=== PATIENT | female | born 1960 | race Caucasian/White ===

== ENCOUNTER 2018-12-21 13:24 | Emergency (ER) | payer BC | END 2018-12-21 15:18 | disposition home or self-care (01) | LOC: FER 13:24 ==

== ENCOUNTER 2020-02-13 16:44 | Emergency (ER) | payer BC ==
--- NOTE | 2020-02-13 16:47 | PDOC ---
History of Present Illness - General Chief Complaint: Lightheaded Stated Complaint: DIZZINESS - History of Present Illness Initial Comments: The pt is a 59F w/ a history of HTN, DM who presents for evaluation of dizziness for 2 days. She reports intermittent dizziness that is worse with standing and also when her blood glucose is elevated. Pt reports similar symptoms 2 weeks ago and at that time also fell and hit her head. Since that time she denies any other falls or LOC. Currently she states that she is mildly lightheaded. She endorses nausea. She denies YANES, vision changes, chest pain at any time, SOB, vomiting, diarrhea, dysuria, hematuria, or changes in strength. She has not taken anything for her symptoms. She reports that she should be taking long and short acting insulin in addition to her Metformin but does not like needles so is less compliant with it. She endorses intermittent tingling in her hands/feet 02/13/20 16:51 Past History - Medical History Allergies/Adverse Reactions: Allergies Allergy/AdvReac Type Severity Reaction Status Date / Time No Known Allergies Allergy Verified 02/13/20 16:46 Home Medications: Ambulatory Orders Metformin HCl [Glucophage] 1,000 mg PO BID 12/21/18 Atorvastatin Ca [Lipitor] 10 mg PO HS 02/13/20 Insulin Glargine,Hum.rec.anlog [Lantus Solostar PEN (NF)] 10 units SQ AM 02/13/20 Insulin Sliding Scale [Novolog Vial Sliding Scale -] 0 units SQ TIDAC 02/13/20 COPD: No Diabetes: Yes HTN: Yes - Psycho-Social/Smoking History Smoking History: Never smoked Have you smoked in the past 12 months: No Review of Systems - Review of Systems Able to Perform ROS?: Yes Comments:: GENERAL/CONSTITUTIONAL: No fever or chills HEAD, EYES, EARS, NOSE AND THROAT: No change in vision. No change in hearing. No sore throat CARDIOVASCULAR: No chest pain or shortness of breath RESPIRATORY: Denies cough, hemoptysis GASTROINTESTINAL: +nausea; No vomiting, diarrhea or constipation GENITOURINARY: No dysuria, frequency, or change in urination MUSCULOSKELETAL: No joint or muscle swelling or pain. No neck or back pain SKIN: No rash NEUROLOGIC: No headache, vertigo, loss of consciousness; +intermittent tingling in hands/feet ENDOCRINE: +polydipsia/polyuria HEMATOLOGIC/LYMPHATIC: No anemia, easy bleeding, or history of blood clots ALLERGIC/IMMUNOLOGIC: No hives or skin allergy 02/13/20 16:46 Is the patient limited Georgian proficient: No *Physical Exam - Vital Signs Initial Vital Signs Temp Pulse Resp BP Pulse Ox 98.5 F 85 18 154/87 99 02/13/20 16:44 02/13/20 16:44 02/13/20 16:44 02/13/20 16:44 02/13/20 16:44 02/13/20 17:17 - Physical Exam GENERAL: Awake, alert, and oriented to person/place/time, in no acute distress HEAD: Well healing laceration to R frontal scalp that is well healing EYES: PERRLA, EOMI, sclera anicteric, conjunctiva clear ENT: Hearing grossly normal, nares patent, oropharynx clear without exudates. Moist mucosa LUNGS: No distress, speaks in full sentences, clear to auscultation bilaterally HEART: Regular rate and rhythm, normal S1 and S2, no murmurs appreciated, peripheral pulses normal and equal bilaterally ABDOMEN: Soft, nontender, normoactive bowel sounds. No guarding, no rebound EXTREMITIES: Normal inspection, Normal range of motion, no edema. No clubbing or cyanosis NEUROLOGICAL: Cranial nerves II through XII grossly intact. Normal speech, ambulating with stable gait, no focal sensorimotor deficits SKIN: Warm, Dry 02/13/20 16:47 ED Treatment Course - LABORATORY CBC & Chemistry Diagram: 02/13/20 17:00 02/13/20 17:00 Medical Decision Making - Medical Decision Making The pt is a 59F w/ a history of HTN, DM who presents for evaluation of dizziness for 2 days. Pt is non-compliant with insulin and reports she will feel this way when her g lucose is high. However pt took insulin today, approx 2 hours [employer] Ddx: ACS, hyperglycemia, hypoglycemia, not likely ICH (given time since fall), consider DKA ED Course BGM 186, not likely DKA, pt; Pt took Novolog 8u 2 hours [employer] CMP, CBC, Coags, UA, UCx ECG CXR 1L NS, Tylenol, Maalox, Pepcid Will hold Zofran at this time given prolonged QTc 02/13/20 17:20 ECG w/ sinus rhythm; incomplete RBBB; HR 83; QTc 491, prolonged; similar to previous; abn ECG 02/13/20 17:24 No anemia No leukocytosis UA contaminated, not likely UA Pending chemistries and Trop Pt signed out to night team 02/13/20 19:00 Discharge - Discharge Information Problems reviewed: Yes Clinical Impression/Diagnosis: Dizziness Condition: Stable - Follow up/Referral Referrals: Azalea Albert [Primary Care Provider] - - Patient Discharge Instructions - Post Discharge Activity
[2020-02-13 16:50] VITALS: TEMP 98.5; BMI 39.6
[2020-02-13] MEDS ORDERED: FAMOTIDINE 20 MG/50 ML IVPB 20 MG/50 ML MG IVPB ONE ×2 (17:08→17:11)
[2020-02-13] MEDS ORDERED: MAG HYDROX/AL HYDROX/SIMETH -MYLANTA- ORAL SUSPENSION PO ONE (17:08)
[2020-02-13] MEDS ORDERED: SODIUM CHLORIDE 0.9% 500 ML INFUS.BAG IV ONE (17:08)
[2020-02-13] MEDS ORDERED: ACETAMINOPHEN 1000 MG/100 ML VIAL (NON FORMULARY) IVPB ONE (17:08)
[2020-02-13] MEDS ORDERED: ONDANSETRON 4 MG/2 ML VIAL IVPUSH ONE (17:08)
[2020-02-13] MEDS ORDERED: ACETAMINOPHEN INJECTION 100 ML IVPB ONE (17:10)
[2020-02-13] MEDS ORDERED: MAG HYDROX/AL HYDROX/SIMETH 30 ML UNIT-DOSE CUP ONE (17:11)
[2020-02-13] MEDS ORDERED: MECLIZINE HCL 25 MG TABLET (FP) PO ONE (17:19)
[2020-02-13] MEDS ORDERED: MECLIZINE HCL 25 MG TABLET (FP) ONE (17:28)
--- NOTE | 2020-02-13 18:17 | PDOC ---
Attending Attestation - Resident Resident Name: Emmanuel Graham - ED Attending Attestation I have performed the following: I have examined & evaluated the patient, The case was reviewed & discussed with the resident, I agree w/resident's findings & plan, Exceptions are as noted - HPI HPI: 02/13/20 18:16 59 years old past medical history significant for hypertension diabetes presents emergency department for evaluation of dizziness for 2 days. Patient has had very similar symptoms in the past usually when her glucose is poorly controlled. She reports intermittent lightheadedness only with change in position it only occurs while ambulating it goes away when she lays down. Denies chest pain shortness of breath diaphoresis. This happens every few weeks to every few months. Normally resolves on its own - Physicial Exam PE: 02/13/20 18:16 Vitals: Triage Vital signs reviewed General Appearance: No acute distress, well nourished well developed, Head: Atraumatic, Eyes: Pupils equal reactive round, extraocular movement intact Neck: Supple; no Nucal rigidity Chest Wall: Nontender Cardiac: Regular rate and rhythym, no murmurs, no rubs, no gallops, Lungs: Clear to auscultation bilateral, good air movement bilaterally, Abdomen: Soft, non distended, normal bowel sounds, non tender to palpation Extremities: Full range of motion to all extremities, no cyanosis, clubbing, or edema Skin: Warm and dry, no rashes or lesions, no rash, no petechiae Neuro: AOX3; cranial Nerves 2-12 grossly intact, strength intact to all extremities, sensation intact to all extremities, gait normal Psych: Normal mood, normal affect - Medical Decision Making 02/13/20 18:16 Well-appearing no apparent distress with positional lightheadedness similar to previous episodes Differential diagnosis includes poorly controlled diabetes, dehydration, less likely ACS very low suspicion for neurologic etiology given nonfocal normal neurologic examination Will perform EKG labs hydrate meclizine observe and reassess EKG performed at 1656 demonstrates normal sinus rhythm no ST elevations no T wave inversions incomplete right bundle branch block Interpreted by me Dr. Aliya García to follow up labs reasses and dispo. CXR no acute pathology interpreted by me Discharge - Discharge Information Problems reviewed: Yes Clinical Impression/Diagnosis: Dizziness Condition: Stable - Follow up/Referral Referrals: Albert,Azalea [Primary Care Provider] - - Patient Discharge Instructions - Post Discharge Activity
[2020-02-13 18:31] LABS: BASO % 0.4 % (0-2.0); EOS % 2.1 % (0-4.5); HEMATOCRIT 38.9 % (32.4-45.2); LYMPH % 19.8 % (8-40); MCHC 33.3 g/dl (32.0-36.0); MEAN CELL VOLUME 86.8 fl (80-96); MEAN PLT VOLUME 11.1 fl (7.5-11.1); NEUT % 73.7 % (42.8-82.8); PLATELET COUNT 208 K/MM3 (134-434); RBC 4.48 M/mm3 (3.60-5.2); RDW 13.2 % (11.6-15.6); WHITE BLOOD COUNT 8.8 K/mm3 (4.0-10.0)
[2020-02-13 18:37] LABS: EPI CELLS >36 /uL (0-25.1); HYALINE CASTS 3 /uL (0-3.1); URINE APPEARANCE CLEAR; URINE BACTERIA 105 /uL (0-1359); URINE BILIRUBIN NEGATIVE (NEGATIVE); URINE COLOR YELLOW; URINE GLUCOSE (UA) NEGATIVE (NEGATIVE); URINE KETONE TRACE (NEGATIVE); URINE LEUK ESTERASE 1+ (NEGATIVE); URINE NITRITE NEGATIVE (NEGATIVE); URINE PROTEIN NEGATIVE (NEGATIVE); URINE RBC 7 /uL (0-23.9); URINE WBC 83 /uL (0-25.8)
[2020-02-13 18:52] LABS: INR 0.95 (0.83-1.09); PROTHROMBIN TIME (PATIENT) 11.2 SEC (9.7-13.0)
[2020-02-13 18:55] LABS: ACTIVATED PTT 28.7 SECONDS (25.2-36.5)
[2020-02-13 19:48] LABS: ALBUMIN 3.6 g/dl (3.4-5.0); ALK PHOS 72 U/L (45-117); ANION GAP 10 MMOL/L (8-16); BILIRUBIN,TOTAL 0.3 mg/dL (0.2-1); CALCIUM 9.3 mg/dL (8.5-10.1); CHLORIDE 106 mmol/L (98-107); CO2 23 mmol/L (21-32); CREATININE 0.8 mg/dL (0.55-1.3); GLUCOSE,RANDOM 176 mg/dL (74-106); LIPASE 94 U/L (73-393); POTASSIUM 3.9 mmol/L (3.5-5.1); SGOT/AST 10 U/L (15-37); SGPT/ALT 26 U/L (13-61); SODIUM 140 mmol/L (136-145); TOT PROT 7.2 g/dl (6.4-8.2)
--- NOTE | 2020-02-13 20:11 | PDOC ---
*Physical Exam - Vital Signs Last Vital Signs Temp Pulse Resp BP Pulse Ox 98.5 F 85 18 154/87 99 02/13/20 16:44 02/13/20 16:44 02/13/20 16:44 02/13/20 16:44 02/13/20 16:44 ED Treatment Course - LABORATORY CBC & Chemistry Diagram: 02/13/20 17:00 02/13/20 17:00 - ADDITIONAL ORDERS Additional order review: Laboratory Results 02/13/20 02/13/20 02/13/20 17:03 17:00 17:00 PT with INR 11.20 INR 0.95 PTT (Actin FS) 28.7 Sodium 140 Potassium 3.9 Chloride 106 Carbon Dioxide 23 Anion Gap 10 BUN 16.0 Creatinine 0.8 Est GFR (CKD-EPI)AfAm 94.85 Est GFR (CKD-EPI)NonAf 81.84 POC Glucometer 187 Random Glucose 176 H Calcium 9.3 Total Bilirubin 0.3 AST 10 L ALT 26 Alkaline Phosphatase 72 Troponin I < 0.02 Total Protein 7.2 Albumin 3.6 Lipase 94 Urine Color Urine Appearance Urine pH Ur Specific [place] Urine Protein Urine Glucose (UA) Urine Ketones Urine Blood Urine Nitrite Urine Bilirubin Urine Urobilinogen Ur Leukocyte Esterase Urine WBC (Auto) Urine RBC (Auto) Urine Casts (Auto) U Epithel Cells (Auto) U Sm Round Cell (Auto) Urine Bacteria (Auto) 02/13/20 17:00 PT with INR INR PTT (Actin FS) Sodium Potassium Chloride Carbon Dioxide Anion Gap BUN Creatinine Est GFR (CKD-EPI)AfAm Est GFR (CKD-EPI)NonAf POC Glucometer Random Glucose Calcium Total Bilirubin AST ALT Alkaline Phosphatase Troponin I Total Protein Albumin Lipase Urine Color Yellow Urine Appearance Clear Urine pH 5.0 Ur Specific [place] 1.033 Urine Protein Negative Urine Glucose (UA) Negative Urine Ketones Trace H Urine Blood Negative Urine Nitrite Negative Urine Bilirubin Negative Urine Urobilinogen 1.0 Ur Leukocyte Esterase 1+ H Urine WBC (Auto) 83 Urine RBC (Auto) 7 Urine Casts (Auto) 3 U Epithel Cells (Auto) >36 U Sm Round Cell (Auto) None Urine Bacteria (Auto) 105 02/13/20 02/13/20 17:03 17:00 RBC 4.48 MCV 86.8 MCHC 33.3 RDW 13.2 MPV 11.1 Neutrophils % 73.7 Lymphocytes % 19.8 Monocytes % 4.0 Eosinophils % 2.1 Basophils % 0.4 POC Glucometer 187 - Medications Given in the ED: ED Medications Discontinued Medications Generic Name Dose Route Start Last Admin Trade Name Remington PRN Reason Stop Dose Admin Acetaminophen 1,000 mg 02/13/20 17:08 02/13/20 17:25 Ofirmev Injection - IVPB 02/13/20 17:09 1,000 mg ONCE ONE Administration Al Hydroxide/Mg Hydroxide 30 ml 02/13/20 17:08 02/13/20 17:25 Mylanta Suspension - PO 02/13/20 17:09 30 ml ONCE ONE Administration Famotidine/Sodium Chloride 20 mg in 50 mls @ 100 mls/hr 02/13/20 17:08 02/13/20 17:39 Pepcid 20 Mg Premixed Ivpb - IVPB 02/13/20 17:37 100 mls/hr ONCE ONE Administration Meclizine HCl 25 mg 02/13/20 17:19 02/13/20 17:32 Antivert - PO 02/13/20 17:20 25 mg ONCE ONE Administration Ondansetron HCl 4 mg 02/13/20 17:08 02/13/20 17:26 Zofran Injection IVPUSH 02/13/20 17:09 Not Given ONCE ONE Sodium Chloride 1,000 ml 02/13/20 17:08 02/13/20 17:05 Normal Saline - IV 02/13/20 17:09 1,000 ml ONCE ONE Administration ED Progress Note - Progress Note Progress Note: 02/13/20 19:02 This patient was transferred to nd from Dr. Mathias at 1900 hrs. This is a 59-year-old female who comes in complaining of some dizziness. Patient also is complaining of some intermittent abdominal cramping. Patient has a work-up initiated. Patient has history of similar symptoms in the past when she said her sugar was high. Her fingerstick [id number] sugar was 187. Plan is to follow-up work-up, patient is receiving some IV fluids and hydration. If patient feels better work-up is unremarkable patient will be discharged home [id number] Patient feels better abdominal discomfort has nearly resolved patient has a normal white count and her rest of her labs are otherwise unremarkable with the exception of a mildly elevated glucose of 176 and a urinary tract infection. Patient is being treated for the urine will be treated for the urinary tract infection with Macrobid and discharged Discharge - Discharge Information Problems reviewed: Yes Clinical Impression/Diagnosis: Dizziness, Urinary tract infection Condition: Stable Disposition: HOME - Admission No - Additional Discharge Information Prescriptions: Nitrofurantoin Monohyd/M-Cryst [Macrobid -] 100 mg PO BID #14 capsule - Follow up/Referral Referrals: Azalea Albert [Primary Care Provider] - - Patient Discharge Instructions Additional Instructions: For your urinary tract infection take Macrobid 1 tablet twice a day for 7 days. For the abdominal cramping you can take hyoscyamine 1 tablet a day. It is important that you monitor your sugars and stay well-hydrated in this hot weather. Return to the emergency department immediately with ANY new, persistent or worsening symptoms. Continue any medications as previously prescribed by your physician. You should follow up with your primary doctor as soon as possible regarding today's emergency department visit. . Please make sure your doctor reviews the results of your emergency evaluation. Thank you for coming to the Emergency Department today for your care. It was a pleasure to see you today. Please note that your evaluation is INCOMPLETE until you follow-up with your doctor. - Post Discharge Activity
[2020-02-13] MEDS ORDERED: HYOSCYAMINE SULFATE 0.125 MG *ODT ONE (20:12)
[2020-02-13] MEDS ORDERED: NITROFURANTOIN MACROCRYSTAL 50 MG CAPSULE (FP) PO SCH (20:15)
[2020-02-13] MEDS ORDERED: NITROFURANTOIN MACROCRYSTAL 50 MG CAPSULE (FP) ONE (20:19)
[2020-02-13] MEDS ORDERED: HYOSCYAMINE SULFATE 0.125 MG *ODT PO ONE (20:20)
[2020-02-13 20:33] VITALS: BP 133/85; PULSE 76
--- NOTE | 2020-02-14 09:11 | EKG ---
Test Reason : Blood Pressure : / mmHG Vent. Rate : 083 BPM Atrial Rate : 083 BPM P-R Int : 134 ms QRS Dur : 100 ms QT Int : 418 ms P-R-T Axes : 055 -11 -10 degrees QTc Int : 491 ms NORMAL SINUS RHYTHM POSSIBLE LEFT ATRIAL ENLARGEMENT INCOMPLETE RIGHT BUNDLE BRANCH BLOCK LEFT VENTRICULAR HYPERTROPHY PROLONGED QT ABNORMAL ECG WHEN COMPARED WITH ECG OF 21-DEC-2018 14:32, T WAVE INVERSION NOW EVIDENT IN ANTERIOR LEADS Confirmed by Ethan Stephens ([id number]) on 02/14/2020 9:11:22 AM Referred By: DR GARCIA Confirmed By:Ethan Stephens
== END 2020-02-13 20:33 | disposition home or self-care (01) ==
LOC: FER 16:44
PROC: 3E033KZ Introduction of Other Diagnostic Substance into Peripheral Vein, Percutaneous Approach (ICD-10-PCS; principal; 2020-02-13)
PROC: 3E033GC Introduction of Other Therapeutic Substance into Peripheral Vein, Percutaneous Approach (ICD-10-PCS; 2020-02-13)
DX: R42 Dizziness and giddiness (principal); N39.0 Urinary tract infection, site not specified
CPT/HCPCS: 36415; 71045-TC-FY; 80053; 81003; 82962; 83036; 83690; 84484; 85025; 85610; 85730; 87077; 87086; 93005; 99285-25; J0131

== ENCOUNTER 2020-07-28 09:48 | Emergency (ER) | payer BC, OTHER | END 2020-07-28 10:02 | disposition home or self-care (01) | LOC: JVIRT 09:48 | DX: U07.1 COVID-19 (principal) | CPT/HCPCS: C9803; G2012-GT; U0003 ==

== ENCOUNTER 2020-07-28 14:00 | Emergency (ER) | payer BC, OTHER ==
[2020-07-28 14:30] VITALS: TEMP 98.8; BMI 40.0
[2020-07-28] MEDS ORDERED: LACTATED RINGERS SOLUTION 1000 ML INFUS.BAG IV ONE ×2 (14:33→15:20)
[2020-07-28 15:14] LABS: BASO % 0.4 % (0-2.0); EOS % 0.1 % (0-4.5); HEMATOCRIT 38.4 % (32.4-45.2); LYMPH % 15.4 % (8-40); MCH 28.9 pg (25.7-33.7); MCHC 33.8 g/dl (32.0-36.0); MEAN CELL VOLUME 85.3 fl (80-96); MEAN PLT VOLUME 10.3 fl (7.5-11.1); MONO % 5.5 % (3.8-10.2); NEUT % 78.6 % (42.8-82.8); PLATELET COUNT 138 K/MM3 (134-434); RDW 12.2 % (11.6-15.6); WHITE BLOOD COUNT 4.6 K/mm3 (4.0-10.8)
[2020-07-28 15:39] LABS: ALBUMIN 3.1 g/dl (3.4-5.0); BILIRUBIN,TOTAL 0.9 mg/dl (0.2-1); CALCIUM 8.5 mg/dl (8.5-10); CREATININE 0.8 mg/dl (0.55-1.3); POTASSIUM 4.1 mmol/L (3.5-5.1); TOT PROT 6.9 g/dl (6.4-8.2)
[2020-07-28 15:59] LABS: EPITHELIAL CELLS FEW /hpf
[2020-07-28 16:40] VITALS: BP 119/72; PULSE 79
== END 2020-07-28 16:55 | disposition home or self-care (01) ==
LOC: FER 14:00 → SUPCPDRO 14:00 → FER 16:55
DX: R91.8 Other nonspecific abnormal finding of lung field (principal); R42 Dizziness and giddiness; R05 Cough
CPT/HCPCS: 36415; 71045-TC-FY; 80053; 81003; 81015; 82962; 84484; 85025; 93005; 99285-25

== ENCOUNTER 2020-07-29 15:44 | Emergency (ER) | payer BC, OTHER ==
[2020-07-29 16:14] VITALS: TEMP 98.2; BMI 43.3
[2020-07-29] MEDS ORDERED: BAMLANIVIMAB 700 MG in SODIUM CHLORIDE 180 ML IVPB ONE (16:24)
[2020-07-29 17:15] LABS: HEMOGLOBIN 12.4 GM/dL (10.7-15.3); MCH 28.7 pg (25.7-33.7); MCHC 33.6 g/dl (32.0-36.0); MEAN CELL VOLUME 85.5 fl (80-96); MEAN PLT VOLUME 10.8 fl (7.5-11.1); PLATELET COUNT 156 K/MM3 (134-434); RBC 4.33 M/mm3 (3.60-5.2); RDW 12.8 % (11.6-15.6); WHITE BLOOD COUNT 4.9 K/mm3 (4.0-10.0)
[2020-07-29 17:36] LABS: CALCIUM 8.4 mg/dL (8.5-10.1)
[2020-07-29 17:40] LABS: CREATININE 0.6 mg/dL (0.55-1.3)
[2020-07-29 17:49] LABS: BLOOD UREA NITROGEN 14.4 mg/dL (7-18)
[2020-07-29] MEDS ORDERED: guaiFENesin/D-M SUGAR-FREE/ACLHOL-FREE 118 ML BOTTLE PO ONE (18:10)
[2020-07-29 19:35] VITALS: BP 124/78; PULSE 85
== END 2020-07-29 19:34 | disposition home or self-care (01) ==
LOC: JER 15:44
DX: U07.1 COVID-19 (principal)
CPT/HCPCS: 36415; 80048; 85027; 99284-25; M0239; Q0239

== ENCOUNTER 2020-08-07 15:40 | Emergency (ER) | payer BC, OTHER | END 2020-08-07 16:02 | disposition left against medical advice (07) | LOC: JVIRT 15:40 | DX: Z11.52 Encounter for screening for COVID-19 (principal) | CPT/HCPCS: G2251-GT; Q3014-GT ==

== ENCOUNTER 2021-05-03 22:59 | Emergency (ER) | payer BC, OTHER ==
[2021-05-03 23:56] VITALS: BMI 42.5
[2021-05-04 00:55] LABS: CHLORIDE 108 mmol/L (98-107); SODIUM 139 mmol/L (136-145)
[2021-05-04 00:56] LABS: BASO % 0.7 % (0-2.0); CALCIUM 9.1 mg/dL (8.5-10.1); EOS % 1.8 % (0-4.5); HEMATOCRIT 35.3 % (32.4-45.2); HEMOGLOBIN 12.1 GM/dL (10.7-15.3); LYMPH % 14.9 % (8-40); MCH 28.8 pg (25.7-33.7); MCHC 34.4 g/dl (32.0-36.0); MEAN CELL VOLUME 83.7 fl (80-96); MEAN PLT VOLUME 9.9 fl (7.5-11.1); MONO % 6.2 % (3.8-10.2); NEUT % 76.4 % (42.8-82.8); PLATELET COUNT 218 10^3/uL (134-434); RBC 4.22 M/mm3 (3.60-5.2); RDW 13.5 % (11.6-15.6); WHITE BLOOD COUNT 9.3 K/mm3 (4.0-10.0)
[2021-05-04 00:57] LABS: ALBUMIN 3.3 g/dl (3.4-5.0); ANION GAP 3 MMOL/L (8-16); CO2 28 mmol/L (21-32); GLUCOSE,RANDOM 85 mg/dL (74-106); MAGNESIUM 1.8 mg/dL (1.8-2.4)
[2021-05-04 01:00] LABS: CREATININE 0.5 mg/dL (0.55-1.3); SGOT/AST 49 U/L (15-37); SGPT/ALT 36 U/L (13-61)
[2021-05-04 01:02] LABS: BILIRUBIN,TOTAL 0.4 mg/dL (0.2-1); TOT PROT 7.5 g/dl (6.4-8.2)
[2021-05-04 01:03] LABS: ALK PHOS 68 U/L (45-117)
[2021-05-04 01:45] LABS: INR 0.93 (0.83-1.09); PROTHROMBIN TIME (PATIENT) 10.4 SEC (9.7-13.0)
[2021-05-04 03:09] VITALS: BP 137/76; PULSE 72; TEMP 98.3
== END 2021-05-04 05:08 | disposition home or self-care (01) ==
LOC: JER 22:59
DX: R42 Dizziness and giddiness (principal); M79.604 Pain in right leg
CPT/HCPCS: 36415; 80053; 82550; 82553; 83735; 84484; 85025; 85379; 85610; 93005; 93010; 93970-TC; 99284-25

== ENCOUNTER 2024-02-05 19:32 | Inpatient (IN) | payer BC, OTHER ==
[2024-02-05] MEDS ORDERED: CEFEPIME HCL 2 GM VIAL (RESTRICTED TO ID) ONE (19:59)
[2024-02-05] MEDS ORDERED: ACETAMINOPHEN INJECTION 100 ML IVPB ONE (20:00)
[2024-02-05] MEDS ORDERED: VANCOMYCIN 1,000 MG VIAL (RESTRICTED TO ID ONLY) ONE (20:00)
[2024-02-05] MEDS: ACETAMINOPHEN 1000 MG/100 ML BAG IVPB ONE (20:20)
[2024-02-05] MEDS: SODIUM CHLORIDE 0.9% 500 ML INFUS.BAG IV ONE (20:20)
[2024-02-05 20:23] LABS: HEMATOCRIT 36.8 % (32.4-45.2); HEMOGLOBIN 12.4 G/dL (10.7-15.3); MCH 29.1 pg (25.7-33.7); MCHC 33.7 g/dl (32.0-36.0); MEAN CELL VOLUME 86.5 fl (80-96); MEAN PLT VOLUME 10.8 fl (7.5-11.1); PLATELET COUNT 164.2 10^3/uL (134-434); RBC 4.26 10^6/uL (3.60-5.2); RDW 13.7 % (11.6-15.6); WHITE BLOOD COUNT 11.2 10^3/uL (4.0-10.8)
[2024-02-05 20:44] LABS: ALBUMIN 3.8 g/dl (3.4-5.0); ALK PHOS 62 U/L (45-117); ANION GAP 11 mmol/L (4-13); BILIRUBIN,TOTAL 0.6 mg/dl (0.2-1); CALCIUM 9.3 mg/dl (8.5-10.1); CHLORIDE 100 mmol/L (98-107); CO2 23 mmol/L (21-32); CREATININE 0.8 mg/dl (0.6-1.3); GLUCOSE,RANDOM 345 mg/dl (74-106); POTASSIUM 3.7 mmol/L (3.5-5.1); SGOT/AST 11 U/L (15-37); SGPT/ALT 15 U/L (7-52); SODIUM 134 mmol/L (136-145); TOT PROT 6.4 g/dl (6.4-8.2)
[2024-02-05] MEDS: CEFEPIME HCL 1 GM VIAL (RESTRICTED TO ID) IVPB ONE (20:52)
[2024-02-05 21:03] LABS: PLATELET ESTIMATE ADEQUATE
[2024-02-05 21:09] LABS: VENOUS BASE EXCESS -1.7 mmol/L (-2-2); VENOUS O2 SATURATION 85.6 % (70-80); VENOUS PCO2 26.2 mmHg (38-52); VENOUS PH 7.487 (7.310-7.410)
[2024-02-05] MEDS ORDERED: INSULIN (NOVOLOG) ASPART 100 UNITS/ML 10ML VIAL ONE (21:26)
[2024-02-05] MEDS: INSULIN (NOVOLOG) ASPART 100 UNITS/ML 10ML VIAL SQ ONE (21:30)
[2024-02-05] MEDS: VANCOMYCIN 1,000 MG in DEXTROSE 5%-WATER - 250 ML IVPB ONE (22:00)
[2024-02-05 22:15] VITALS: BMI 39.4
[2024-02-05 22:21] LABS: ERYTHROCYTE SEDIMENTATION RATE 70 mm/hr (0-30)
[2024-02-05] MEDS: INSULIN ASPART SLIDING SCALE (NOVOLOG) 1 VIAL SQ SCH (22:45)
[2024-02-06] MEDS ORDERED: DOCUSATE SODIUM 100 MG CAPSULE (FP) PO PRN (04:30)
[2024-02-06] MEDS: oxyCODONE HCL 5 MG TABLET PO PRN (04:51)
[2024-02-06 08:39] LABS: HEMATOCRIT 36.4 % (32.4-45.2); HEMOGLOBIN 11.8 G/dL (10.7-15.3); MCH 27.9 pg (25.7-33.7); MCHC 32.3 g/dl (32.0-36.0); MEAN CELL VOLUME 86.4 fl (80-96); PLATELET COUNT 149.7 10^3/uL (134-434); RBC 4.21 10^6/uL (3.60-5.2); RDW 13.9 % (11.6-15.6); WHITE BLOOD COUNT 8.9 10^3/uL (4.0-10.8)
[2024-02-06] MEDS: VANCOMYCIN/WATER 1250 MG 1,250 MG/250 ML BAG IVPB SCH ×2 (08:52→19:18)
[2024-02-06 09:04] LABS: PLATELET ESTIMATE ADEQUATE
[2024-02-06 10:09] LABS: CALCIUM 8.7 mg/dl (8.5-10.1); CREATININE 0.5 mg/dl (0.6-1.3); POTASSIUM 3.5 mmol/L (3.5-5.1)
[2024-02-06] MEDS ORDERED: ACETAMINOPHEN 325 MG TABLET (FP) ONE (14:37)
[2024-02-06] MEDS: PIPERACILLIN/TAZOB 3.375 GM 3.375 GM in DEXTROSE 5%-WATER - 50 ML IVPB SCH (14:39)
[2024-02-06] MEDS: ACETAMINOPHEN 325 MG TABLET (FP) PO PRN (22:01)
[2024-02-06] MEDS ORDERED: INSULIN ASPART SLIDING SCALE (NOVOLOG) 1 VIAL SQ ONE (22:10)
[2024-02-07] MEDS ORDERED: INSULIN ASPART SLIDING SCALE (NOVOLOG) 1 VIAL SQ ONE (06:24)
[2024-02-07 08:55] LABS: ALBUMIN 3.2 g/dl (3.4-5.0); BILIRUBIN,TOTAL 0.7 mg/dl (0.2-1); CALCIUM 8.8 mg/dl (8.5-10.1); POTASSIUM 3.6 mmol/L (3.5-5.1); TOT PROT 5.6 g/dl (6.4-8.2)
[2024-02-07 09:46] LABS: BASO % 0.4 % (0-2.0); EOS % 2.3 % (0-4.5); HEMOGLOBIN 11.3 GM/dL (10.7-15.3); LYMPH % 12.2 % (8-40); MCH 29.1 pg (25.7-33.7); MCHC 34.4 g/dl (32.0-36.0); MEAN CELL VOLUME 84.5 fl (80-96); MEAN PLT VOLUME 10.7 fl (7.5-11.1); MONO % 6.7 % (3.8-10.2); NEUT % 78.4 % (42.8-82.8); PLATELET COUNT 167 10^3/uL (134-434); RDW 13.1 % (11.6-15.6); WHITE BLOOD COUNT 7.9 K/mm3 (4.0-10.0)
[2024-02-07 10:12] LABS: CREATININE 0.5 mg/dl (0.6-1.3)
[2024-02-07] MEDS: INSULIN (LEVEMIR) 100 UNITS/ML UNITS SQ SCH (10:27)
[2024-02-07] MEDS ORDERED: ONDANSETRON 4 MG/2 ML VIAL IVPUSH PRN (14:22)
[2024-02-07] MEDS ORDERED: MIDAZOLAM HCL 2 MG/2 ML SINGLE DOSE VIAL ONE (14:39)
[2024-02-07] MEDS ORDERED: PROPOFOL 20 ML ONE (14:39)
[2024-02-07] MEDS ORDERED: ACETAMINOPHEN INJECTION 100 ML IVPB ONE (14:42)
[2024-02-07 15:06] LABS: INR 1.21 (0.83-1.09); PROTHROMBIN TIME (PATIENT) 13.7 SEC (9.7-13.0)
[2024-02-08 07:56] LABS: CALCIUM 8.3 mg/dl (8.5-10.1); CREATININE 0.5 mg/dl (0.6-1.3); POTASSIUM 3.4 mmol/L (3.5-5.1)
[2024-02-08] MEDS: ACETAMINOPHEN 500 MG TABLET (FP) PO PRN (09:16)
[2024-02-08 09:35] LABS: BASO % 0.3 % (0-2.0); EOS % 2.4 % (0-4.5); HEMATOCRIT 30.9 % (32.4-45.2); HEMOGLOBIN 10.7 GM/dL (10.7-15.3); LYMPH % 14.8 % (8-40); MCH 28.9 pg (25.7-33.7); MCHC 34.5 g/dl (32.0-36.0); MEAN CELL VOLUME 83.8 fl (80-96); MEAN PLT VOLUME 10.4 fl (7.5-11.1); NEUT % 75.5 % (42.8-82.8); PLATELET COUNT 177 10^3/uL (134-434); RBC 3.69 M/mm3 (3.60-5.2); RDW 13.2 % (11.6-15.6); WHITE BLOOD COUNT 5.9 K/mm3 (4.0-10.0)
[2024-02-08] MEDS: POTASSIUM CHLORIDE ORAL LIQUID 20 MEQ/15 ML PO ONE (15:16)
[2024-02-08] MEDS: POLYETHYLENE GLYCOL (HEALTHYLAX) 3350 17 GM PACKET PO PRN (15:16)
[2024-02-08] MEDS: LACTATED RINGERS SOLUTION 1,000 ML IV SCH ×2 (18:18→19:15)
[2024-02-08] MEDS ORDERED: DOCUSATE SODIUM 100 MG CAPSULE (FP) PO PRN (18:51)
[2024-02-08] MEDS ORDERED: oxyCODONE HCL 5 MG TABLET PO PRN (18:51)
[2024-02-08] MEDS: VANCOMYCIN/WATER 1250 MG 1,250 MG/250 ML BAG IVPB SCH (19:24)
[2024-02-08] MEDS ORDERED: INSULIN ASPART SLIDING SCALE (NOVOLOG) 1 VIAL SQ ONE (21:58)
[2024-02-08] MEDS: INSULIN ASPART SLIDING SCALE (NOVOLOG) 1 VIAL SQ SCH (22:26)
[2024-02-08] MEDS: INSULIN (LEVEMIR) 100 UNITS/ML UNITS SQ SCH (22:26)
[2024-02-09] MEDS: PIPERACILLIN/TAZOB 3.375 GM 3.375 GM in DEXTROSE 5%-WATER - 50 ML IVPB SCH (02:00)
[2024-02-09] MEDS ORDERED: INSULIN ASPART SLIDING SCALE (NOVOLOG) 1 VIAL SQ ONE (06:42)
[2024-02-09 08:06] LABS: ALBUMIN 3.1 g/dl (3.4-5.0); BILIRUBIN,TOTAL 0.5 mg/dl (0.2-1); CALCIUM 8.7 mg/dl (8.5-10.1); CREATININE 0.5 mg/dl (0.6-1.3); POTASSIUM 3.7 mmol/L (3.5-5.1); TOT PROT 5.3 g/dl (6.4-8.2)
[2024-02-09 10:42] LABS: BASO % 0.7 % (0-2.0); EOS % 4.5 % (0-4.5); HEMATOCRIT 30.9 % (32.4-45.2); HEMOGLOBIN 10.5 GM/dL (10.7-15.3); LYMPH % 20.1 % (8-40); MCH 28.8 pg (25.7-33.7); MEAN CELL VOLUME 84.5 fl (80-96); MEAN PLT VOLUME 10.3 fl (7.5-11.1); MONO % 8.3 % (3.8-10.2); NEUT % 66.4 % (42.8-82.8); PLATELET COUNT 190 10^3/uL (134-434); RBC 3.66 M/mm3 (3.60-5.2); RDW 13.3 % (11.6-15.6); WHITE BLOOD COUNT 4.4 K/mm3 (4.0-10.0)
[2024-02-09] MEDS: CEFAZOLIN SODIUM 2 GM in DEXTROSE 5%-WATER 100 ML IVPB SCH (12:51)
[2024-02-09] MEDS: VANCOMYCIN/WATER 1250 MG 1,250 MG/250 ML BAG IVPB SCH (13:55)
[2024-02-09 18:39] VITALS: RESP 17
[2024-02-10 06:31] VITALS: BP 128/71; PULSE 74; TEMP 98.2
== END 2024-02-10 09:40 | disposition home or self-care (01) | DRG 603 ==
LOC: FER 19:32 → FM/S 20:52
PROVIDERS: ADMIT Internal Medicine; ATTEND Family Medicine
PROC: 0J990ZZ Drainage of Buttock Subcutaneous Tissue and Fascia, Open Approach (ICD-10-PCS; principal; 2024-02-07 15:09)
DX: L02.31 Cutaneous abscess of buttock (principal); I10 Essential (primary) hypertension; E78.5 Hyperlipidemia, unspecified; R50.9 Fever, unspecified; D72.829 Elevated white blood cell count, unspecified; E11.65 Type 2 diabetes mellitus with hyperglycemia; B95.1 Streptococcus, group B, as the cause of diseases classified elsewhere; E66.9 Obesity, unspecified; Z68.39 Body mass index [BMI] 39.0-39.9, adult; Z91.148 Patient's other noncompliance with medication regimen for other reason
CPT/HCPCS: 0241U-QW; 36415; 72170-TC-FY; 72192-TC; 80048; 80053; 82803; 82962; 83036; 83605; 85025; 85027; 85610; 85651; 86140; 86850; 86900; 86901; 87040; 87070; 87077; 87086; 87186; 87205; 93005; 94760; 99291; G0480; J0131